=== PATIENT | male | born 1985 | race Caucasian/White ===

== ENCOUNTER 2018-02-09 15:54 | Inpatient (IN) | payer OTHER ==
[2018-02-09 17:35] VITALS: BMI 33.2
[2018-02-09] MEDS ORDERED: MELATONIN 5 MG TABLETS PO PRN (22:00)
--- NOTE | 2018-02-09 23:33 | HP ---
CIWA Score - CIWA Score Nausea/Vomitin-Mild Nausea/No Vomiting Muscle Tremors: 4-Moderate,w/Arms Extend Anxiety: 4-Mod. Anxious/Guarded Agitation: 4-Moderately Restless Paroxysmal Sweats: 1-Minimal Palms Moist Orientation: 1-Uncertain about Date Tacttile Disturbances: 1-Very Mild Itch/Numbness Auditory Disturbances: 0-None Visual Disturbances: 0-None Headache: 3-Moderate (Head and eyes pounding r/t withdrawal) CIWA-Ar Total Score: [address] [facility] Chief Complaint: Here or Xanax and alcohol withdrawal. Allergies/Adverse Reactions: Allergies Allergy/AdvReac Type Severity Reaction Status Date / Time Fish Containing Products Allergy Hives Verified 02/09/18 20:58 Sulfa (Sulfonamide Allergy Hives Verified 02/09/18 20:58 Antibiotics) sulfamethoxazole Allergy Hives Verified 02/09/18 20:58 [From Bactrim] trimethoprim [From Bactrim] Allergy Hives Verified 02/09/18 20:58 History of Present Illness: Started taking Xanax at age 17. Takes 2 - 5 mg's per day. Last used on 02/08 HS. Alcohol use started at age 11. Drinks 6-12 40 oz beers daily. Last drink this am. Last detox 2 years ago. Relapsed one month ago. Currently on MMTP at [facility]. Methadone dose is 70 mg PO Daily. Needs verification in am by RN. Uses cocaine 1-2x/month. Marijuana use approx $20/day every other day. States takes THC for pain and appetite. Hx. multiple Sclerosis and fibromyalgia. No prescribed meds on [employer]. - Ebola screening Have you traveled outside of the country in the last 21 days: No (N) Have you had contact with anyone from an Ebola affected area: No Have you been sick,other than usual withdrawal symptoms: No Do you have a fever: No - Review of Systems Constitutional: Chills, Diaphoresis, Changes in sleep (Sleep difficulty since age 15.) EENT: reports: Other (States seeing spots of light for last 2 day r/t withdrawal ) Respiratory: reports: No Symptoms reported Cardiac: reports: No Symptoms Reported GI: reports: Nausea : reports: No Symptoms Reported Musculoskeletal: reports: Back Pain, Joint Pain, Muscle Pain, Other (States has fibromyalgia and Multiple Sclerosis since age 15. Pain is chronic and diffuse. pain is achy and throbbing. Pain now is a "8". Pain is usually relieves w/ neurontin.) Integumentary: reports: Lesions (Blister (R) heel from shoes rubbing when walks. ) Neuro: reports: Headache Endocrine: reports: No Symptoms Reported Hematology: reports: No Symptoms Reported Psychiatric: reports: Orientated x3, Anxious, Depressed (Hx depression since age 11. has hx. PTSD. Denies suicide or violent ideation.) Patient History - Patient Medical History Hx Anemia: No Hx Asthma: No Hx Chronic Obstructive Pulmonary Disease (COPD): No Hx Cancer: No Hx Cardiac Disorders: No Hx Congestive Heart Failure: No Hx Hypertension: No Hx Hypercholesterolemia: No Hx Pacemaker: No HX Cerebrovascular Accident: No Hx Seizures: Yes (xanax related last 3 days ago) Hx Dementia: No Hx Diabetes: No Hx Gastrointestinal Disorders: No Hx Liver Disease: No Hx Genitourinary Disorders: No Hx Sexually Transmitted Disorders: No Hx Renal Disease (ESRD): No Hx Thyroid Disease: No Hx Human Immunodeficiency Virus (HIV): No Hx Hepatitis C: No Hx Depression: Yes (Denies suicide/violent ideation.) Hx Suicide Attempt: No Hx Bipolar Disorder: Yes Hx Schizophrenia: No - Patient Surgical History Past Surgical History: No Hx Neurologic Surgery: No Hx Cataract Extraction: No Hx Cardiac Surgery: No Hx Lung Surgery: No Hx Breast Surgery: No Hx Breast Biopsy: No Hx Abdominal Surgery: No Hx Appendectomy: No Hx Cholecystectomy: No Hx Genitourinary Surgery: No Hx Section: No Hx Orthopedic Surgery: No Anesthesia Reaction: No - PPD History Previous Implant?: Yes Documented Results: Negative w/proof Date: 05/17/16 PPD to be Administered?: Yes - Smoking Cessation Smoking history: Current every day smoker Have you smoked in the past 12 months: Yes Aproximately how many cigarettes per day: 20 Hx Chewing Tobacco Use: No Initiated information on smoking cessation: Yes 'Breaking Loose' booklet given: 02/09/18 - Substance & Tx. History Hx Alcohol Use: Yes Hx Substance Use: Yes Substance Use Type: Alcohol, Cocaine, Marijuana, Tranquilizers Hx Substance Use Treatment: Yes (on MMTP. Last detox 2 yrs ago. ) - Substances Abused Alprazolam (Xanax) Route: Oral Frequency: Daily Amount used: 10mg Age of first use: 17 Date of Last Use: 02/09/18 Alcohol Route: Oral Frequency: Daily Amount used: 6 - 12 40 oz beers Age of first use: 11 Date of Last Use: 02/08/18 Cocaine Route: Smoking Frequency: 1-3 times last 30 days Amount used: $20 Age of first use: 12 Date of Last Use: 02/07/18 Marijuana/Hashish Route: Smoking Frequency: 3-6 times per week Amount used: $20 Age of first use: 11 Date of Last Use: 02/08/18 Admission Physical Exam [facility] - Vital Signs Vital Signs: Vital Signs - 24 hr 02/09/18 17:32 Temperature 97.9 F Pulse Rate 106 H Respiratory 22 Rate Blood Pressure 141/103 - Physical General Appearance: Yes: Mild Distress, Tremorous, Anxious HEENTM: Yes: EOMI, Hearing grossly Normal, [place] Respiratory: Yes: Lungs Clear, Normal Breath Sounds Neck: Yes: No masses,lesions,Nodules Breast: Yes: Breast Exam Deferred Cardiology: Yes: Regular Rhythm, Regular Rate, S1, S2 Abdominal: Yes: Normal Bowel Sounds, Non Tender, Soft Genitourinary: Yes: Within Normal Limits Musculoskeletal: Yes: full range of Motion, Gait Steady Extremities: Yes: Normal Capillary Refill, Tremors (On arm extension) Neurological: Yes: Fully Oriented, Motor Strength 5/5 Integumentary: Yes: Track Robertson (Old track robertson on arms), Other (Superficial abrasion (R) heel. No exudate.) - Diagnostic (1) Alcohol withdrawal Current Visit: Yes Status: Acute Qualifiers: Complication of substance-induced condition: uncomplicated Qualified Code(s ): F10.230 - Alcohol dependence with withdrawal, uncomplicated (2) Cocaine use disorder Current Visit: Yes Status: Acute (3) Depression Current Visit: Yes Status: Chronic Qualifiers: Major depression episode severity: unspecified (4) Skin lesion Current Visit: Yes Status: Acute (5) Nicotine dependence Current Visit: No Status: Chronic Qualifiers: Nicotine product type: cigarettes Substance use status: uncomplicated Qualified Code(s): F17.210 - Nicotine dependence, cigarettes, uncomplicated (6) Opioid dependence on agonist therapy Current Visit: No Status: Chronic (7) Sedative, hypnotic or anxiolytic dependence with withdrawal, uncomplicated Current Visit: Yes Status: Acute (8) Cannabis abuse Current Visit: Yes Status: Chronic Cleared for Admission [facility] - Detox or Rehab Detox Regimen/Protocol: Valium [facility] Breath Alcohol Content Breath Alcohol Content: 0 Urine Drug Screen - Results Drug Screen Negative: No Urine Drug Screen Results: THC-Marijuana, JALYN-Cocaine, BZO-Benzodiazepines, MTD- Methadone, TCA-Tricyclic Antidepress
[2018-02-09] MEDS ORDERED: MAG HYDROX/AL HYDROX/SIMETH 30 ML UNIT-DOSE CUP PO PRN (23:54)
[2018-02-09] MEDS ORDERED: LOPERAMIDE HCL 2 MG CAPSULE PO PRN (23:54)
[2018-02-09] MEDS ORDERED: ACETAMINOPHEN 325 MG TABLET (FP) PO PRN (23:54)
[2018-02-09] MEDS ORDERED: MAGNESIUM HYDROX 2400MG/30ML ORAL SUSPENSION 30 ML CUP PO PRN (23:54)
[2018-02-09] MEDS ORDERED: IBUPROFEN 400 MG TABLET (FP) PO PRN (23:54)
[2018-02-09] MEDS ORDERED: MAGNESIUM CITRATE 300 ML BOTTLE PO PRN (23:54)
[2018-02-09] MEDS ORDERED: MENTHOL/PHENOL 1 EACH UD MM PRN (23:54)
[2018-02-09] MEDS ORDERED: guaiFENesin/D-METHORPHAN HB 10 ML UNIT-DOSE CUPS PO PRN (23:54)
[2018-02-09] MEDS ORDERED: P-EPHED 60MG/TRIPROLIDI 2.5MG TABLET PO PRN (23:54)
[2018-02-10] MEDS ORDERED: diazePAM 5 MG TABLET PO ONE (00:15)
[2018-02-10] MEDS ORDERED: GABAPENTIN 400 MG CAPSULE (FP) PO ONE (01:00)
[2018-02-10] MEDS ORDERED: ONDANSETRON *ODT* 4 MG TABLET SL ONE ×2 (02:41→05:45)
[2018-02-10] MEDS: CYCLOBENZAPRINE HCL 10 MG TABLET (FP) PO SCH ×3 (05:41→22:42)
[2018-02-10] MEDS: diazePAM 5 MG TABLET PO SCH ×3 (05:41→22:42)
[2018-02-10] MEDS: NICOTINE POLACRILEX 2 MG GUM BC PRN ×2 (06:03→13:09)
[2018-02-10] MEDS: diazePAM 5 MG TABLET PO PRN ×2 (08:28→17:03)
[2018-02-10] MEDS: hydrOXYzine PAMOATE 50 MG CAPSULE (FP) PO PRN (08:28)
--- NOTE | 2018-02-10 09:22 | EKG ---
Test Reason : Blood Pressure : / mmHG Vent. Rate : 088 BPM Atrial Rate : 088 BPM P-R Int : 160 ms QRS Dur : 104 ms QT Int : 378 ms P-R-T Axes : 081 085 079 degrees QTc Int : 457 ms NORMAL SINUS RHYTHM NORMAL ECG NO PREVIOUS ECGS AVAILABLE Confirmed by DORETHA LIZ, BELINDA ([id number]) on 02/10/2018 9:21:54 AM Referred By: Confirmed By:BELINDA COYNE MD
[2018-02-10] MEDS ORDERED: METHADONE HCL 10 MG TABLET PO SCH (10:00)
[2018-02-10 10:10] LABS: URINE APPEARANCE CLEAR; URINE BILIRUBIN NEGATIVE (<2.0 mg/dL); URINE COLOR LTYELLOW; URINE GLUCOSE (UA) NEGATIVE (NEGATIVE); URINE KETONE NEGATIVE (NEGATIVE); URINE LEUK ESTERASE NEGATIVE (NEGATIVE); URINE NITRITE NEGATIVE (NEGATIVE); URINE PROTEIN NEGATIVE (NEGATIVE); URINE UROBILINOGEN NEGATIVE mg/dL (0.2-1.0)
[2018-02-10 10:14] LABS: HEMATOCRIT 41.1 % (35.4-49); HEMOGLOBIN 13.6 GM/dL (11.7-16.9); MCH 28.3 pg (25.7-33.7); MCHC 33.1 g/dl (32.0-35.9); MEAN CELL VOLUME 85.5 fl (80-96); MEAN PLT VOLUME 8.2 fl (7.5-11.1); PLATELET COUNT 246 K/MM3 (134-434); RBC 4.81 M/mm3 (4.00-5.60); WHITE BLOOD COUNT 6.3 K/mm3 (4.0-10.0)
[2018-02-10 10:32] LABS: ALBUMIN 3.1 g/dl (3.4-5.0); ANION GAP 8 (8-16); BLOOD UREA NITROGEN 13 mg/dL (7-18); CALCIUM 7.6 mg/dL (8.5-10.1); CHLORIDE 108 mmol/L (98-107); CO2 26 mmol/L (21-32); POTASSIUM 4.1 mmol/L (3.5-5.1); SODIUM 142 mmol/L (136-145)
[2018-02-10 10:37] LABS: ALK PHOS 76 U/L (45-117); BILIRUBIN,TOTAL 0.4 mg/dL (0.2-1.0); CREATININE 0.8 mg/dL (0.7-1.3); GLUCOSE,RANDOM 87 mg/dL (74-106); SGOT/AST 15 U/L (15-37); SGPT/ALT 16 U/L (12-78); TOT PROT 5.9 g/dl (6.4-8.2)
[2018-02-10] MEDS: NICOTINE 21 MG/24 HOURS TOPICAL PATCH TD SCH (10:40)
[2018-02-10] MEDS: PRENATAL VITAMINS W/ FOLIC ACID TABLET (FP) PO SCH (10:40)
[2018-02-10] MEDS: BACITRACIN 0.9 GM PACKET TP SCH ×2 (10:40→22:42)
[2018-02-10] MEDS: GABAPENTIN 300 MG CAPSULE (FP) PO SCH ×2 (13:05→22:43)
--- NOTE | 2018-02-10 14:14 | CONSULT ---
[facility] Psychiatric Consult - Data Date of interview: 02/10/18 Admission source: [facility] Identifying data: Readmission to [facility] for this 32 y/o male seeking detox treatment on for alcohol,xanax,cocaine,cannabis and heroin dependence.Patient is single,a father of one,homeless,unemployed and supported by relatives. Substance Abuse History: Confirmed by the patient in my interview.Details in current [facility] report : Smoking history: Current every day smoker. Have you smoked in the past 12 months: Yes. Aproximately how many cigarettes per day: 20. Hx Chewing Tobacco Use: No. Initiated information on smoking cessation: Yes. 'Breaking Loose' booklet given: 02/09/18. - Substance & Tx. History. Hx Alcohol Use: Yes. Hx Substance Use: Yes. Substance Use Type: Alcohol, Cocaine , Marijuana, Tranquilizers. Hx Substance Use Treatment: Yes (on MMTP. Last detox 2 yrs ago. ). - Substances Abused. Alprazolam (Xanax). Route: Oral. Frequency: Daily. Amount used: 10mg. Age of first use: 17. Date of Last Use : 02/09/18. Alcohol. Route: Oral. Frequency: Daily. Amount used: 6 - 12 40 oz beers. Age of first use: 11. Date of Last Use: 02/08/18. Cocaine. Route: Smoking. Frequency: 1-3 times last 30 days. Amount used: $20. Age of first use: 12. Date of Last Use: 02/07/18. Marijuana/Hashish. Route: Smoking. Frequency: 3-6 times per week. Amount used: $20. Age of first use: 11. Date of Last Use: 02/08/18 Medical History: Obesity,history of withdrawal-related seizures,fibromyalgia and multiple sclerosis. Psychiatric History: Patient admits to a history of two psychiatric hospitalizations ([facility]).Diagnosed with MDD and Anxiety Disorder.Mr Mohamud declares that he uses the CPEP setting at [facility] as his resource for medications refills.Denies regular format of psychiatric OPD care.Prescribed seroquel 400 mg/hs + wellbutrin SR 200 bid and trazodone 150 mg/hs (confirmed by limited refills -1 or 2 week supply - for these medications claimed on 01/29/18 at the [facility]).Patient indicates that he is also known to the [facility] OPD clinic (no show for months).Self-reported history of a suicide attempt via wrist-cutting 4- 5 years ago.Patient is currently on methadone maintenance (70 mg/day) at the [facility] MMTP program in [facility]. Physical/Sexual Abuse/Trauma History: Patient denies. Additional Comment: Urine Drug Screen Results: THC-Marijuana, JALYN-Cocaine, BZO- Benzodiazepines, MTD-Methadone, TCA-Tricyclic Antidepressant.Noted. Mental Status Exam - Mental Status Exam Alert and Oriented to: Time, Place, Person Cognitive Function: Grossly Intact (sleepy at intervals) Patient Appearance: Unkempt, Disheveled (tall stature,obese ; chest covered with fake jewelry,tattoo on left side of neck/forearms,earrings in both earlobes ,pierced bridge of nose and left eyebrow) Mood: Nervous, Anxious, Apprehensive, Irritable Affect: Mood Congruent, Labile Patient Behavior: Restless, Fatigued (medication-seeking), Talkative Speech Pattern: Clear, Excessive, Perseverating Voice Loudness: Normal Thought Process: Circumstantial Thought Disorder: Not Present Hallucinations: Denies Suicidal Ideation: Denies Homicidal Ideation: Denies Insight/Judgement: Poor Sleep: Poorly, Difficulty falling asleep Appetite: Good Muscle strength/Tone: Normal Gait/Station: Normal Psychiatric Findings - Problem List ([place] 1, 2,3) (1) Opioid dependence on agonist therapy Current Visit: Yes Status: Acute (2) Alcohol withdrawal Current Visit: Yes Status: Acute Qualifiers: Complication of substance-induced condition: uncomplicated Qualified Code(s ): F10.230 - Alcohol dependence with withdrawal, uncomplicated (3) Sedative, hypnotic or anxiolytic dependence with withdrawal, uncomplicated Current Visit: Yes Status: Acute (4) Cocaine dependence Current Visit: Yes Status: Acute (5) Marihuana dependence Current Visit: Yes Status: Acute (6) Nicotine dependence Current Visit: Yes Status: Acute Qualifiers: Nicotine product type: cigarettes Substance use status: uncomplicated Qualified Code(s): F17.210 - Nicotine dependence, cigarettes, uncomplicated (7) Drug-induced mood disorder Current Visit: Yes Status: Acute (8) Bipolar disorder Current Visit: Yes Status: Suspected (9) Insomnia Current Visit: Yes Status: Acute - Initial Treatment Plan Initial Treatment Plan: Psychoeducation.Sleep hygiene.Detoxification in progress.Medications : bupropion 100 mg po bid (at 7 am + 4 pm) + seroquel 200 mg po hs (dose reduced as a caution for oversedation).Trazodone is withdrawn.Side effects /benefits of each medication discussed with the patient.There is ample clinical justification for resuming medications at much lesser doses because, in the psychiatric interview, Mr Mohamud was observed falling asleep at intervals.Titration will follow as clinically indicated (next 24-48 hours).Mr Mohamud agrees with this careplan.Psychiatric re-consultation is advised.Will follow.Observation.Falls precautions.
--- NOTE | 2018-02-10 14:22 | PN ---
S CIWA - CIWA Score Nausea/Vomitin Muscle Tremors: 3 Anxiety: 3 Agitation: 3 Paroxysmal Sweats: 1-Minimal Palms Moist Orientation: 0-Oriented Tacttile Disturbances: 1-Very Mild Itch/Numbness Auditory Disturbances: 1-Very Mild Visual Disturbances: 0-None Headache: 2-Mild CIWA-Ar Total Score: 17 [facility] Progress Note (SOAP) Subjective: ALERT,IRRITABLE,ANXIOUS,INTERRUPTED SLEEP,PAIN IN THE BODY AND BACK, NEUROPATHY,BACK PAIN Objective: 02/10/18 14:20 Vital Signs Temperature 97.9 F 02/10/18 09:35 Pulse Rate 80 02/10/18 09:35 Respiratory Rate 18 02/10/18 09:35 Blood Pressure 130/103 02/10/18 09:35 O2 Sat by Pulse Oximetry (%) EKG NSR,NORMAL ECG PROLONG QT 378/457 Laboratory Last Values WBC 6.3 K/mm3 (4.0-10.0) D 02/10/18 08:00 RBC 4.81 M/mm3 (4.00-5.60) 02/10/18 08:00 Hgb 13.6 GM/dL (11.7-16.9) D 02/10/18 08:00 Hct 41.1 % (35.4-49) 02/10/18 08:00 MCV 85.5 fl (80-96) 02/10/18 08:00 MCH 28.3 pg (25.7-33.7) 02/10/18 08:00 MCHC 33.1 g/dl (32.0-35.9) 02/10/18 08:00 RDW 16.0 % (11.9-15.9) H 02/10/18 08:00 Plt Count 246 K/MM3 (134-434) 02/10/18 08:00 MPV 8.2 fl (7.5-11.1) 02/10/18 08:00 Sodium 142 mmol/L (136-145) 02/10/18 08:00 Potassium 4.1 mmol/L (3.5-5.1) 02/10/18 08:00 Chloride 108 mmol/L (98-107) H 02/10/18 08:00 Carbon Dioxide 26 mmol/L (21-32) 02/10/18 08:00 Anion Gap 8 (8-16) 02/10/18 08:00 BUN 13 mg/dL (7-18) 02/10/18 08:00 Creatinine 0.8 mg/dL (0.7-1.3) 02/10/18 08:00 Creat Clearance w eGFR > 60 (>60) 02/10/18 08:00 Random Glucose 87 mg/dL (74-106) D 02/10/18 08:00 Calcium 7.6 mg/dL (8.5-10.1) L 02/10/18 08:00 Total Bilirubin 0.4 mg/dL (0.2-1.0) D 02/10/18 08:00 AST 15 U/L (15-37) 02/10/18 08:00 ALT 16 U/L (12-78) D 02/10/18 08:00 Alkaline Phosphatase 76 U/L (45-117) D 02/10/18 08:00 Total Protein 5.9 g/dl (6.4-8.2) L 02/10/18 08:00 Albumin 3.1 g/dl (3.4-5.0) L 02/10/18 08:00 Urine Color Ltyellow 02/10/18 08:00 Urine Appearance Clear 02/10/18 08:00 Urine pH 7.0 (5.0-8.0) 02/10/18 08:00 Ur Specific [place] 1.025 (1.001-1.035) 02/10/18 08:00 Urine Protein Negative (NEGATIVE) 02/10/18 08:00 Urine Glucose (UA) Negative (NEGATIVE) 02/10/18 08:00 Urine Ketones Negative (NEGATIVE) 02/10/18 08:00 Urine Blood Negative (NEGATIVE) 02/10/18 08:00 Urine Nitrite Negative (NEGATIVE) 02/10/18 08:00 Urine Bilirubin Negative (<2.0 mg/dL) 02/10/18 08:00 Urine Urobilinogen Negative mg/dL (0.2-1.0) 02/10/18 08:00 Ur Leukocyte Esterase Negative (NEGATIVE) 02/10/18 08:00 RPR Titer Nonreactive (NONREACTIVE) 02/10/18 08:00 Assessment: 02/10/18 14:21 WITHDRAWAL SYMPTOM Plan: CONTINUE DETOX
[2018-02-10] MEDS: buPROPion HCL 100 MG TABLET PO SCH (15:30)
[2018-02-10] MEDS ORDERED: cloNIDine HCL 0.1 MG TABLET PO ONE (22:30)
--- NOTE | 2018-02-10 22:33 | PN ---
S Progress Note (SOAP) Subjective: Nurse, Ms. Sharee Varghese reports that patient's blood pressure is B/P 157/103, HR 61. Patient is asymptomatic. Objective: 02/10/18 22:32 Vital Signs Temperature 98.2 F 02/10/18 22:24 Pulse Rate 61 02/10/18 22:24 Respiratory Rate 18 02/10/18 22:24 Blood Pressure 157/103 02/10/18 22:24 O2 Sat by Pulse Oximetry (%) Laboratory Last Values WBC 6.3 K/mm3 (4.0-10.0) D 02/10/18 08:00 RBC 4.81 M/mm3 (4.00-5.60) 02/10/18 08:00 Hgb 13.6 GM/dL (11.7-16.9) D 02/10/18 08:00 Hct 41.1 % (35.4-49) 02/10/18 08:00 MCV 85.5 fl (80-96) 02/10/18 08:00 MCH 28.3 pg (25.7-33.7) 02/10/18 08:00 MCHC 33.1 g/dl (32.0-35.9) 02/10/18 08:00 RDW 16.0 % (11.9-15.9) H 02/10/18 08:00 Plt Count 246 K/MM3 (134-434) 02/10/18 08:00 MPV 8.2 fl (7.5-11.1) 02/10/18 08:00 Sodium 142 mmol/L (136-145) 02/10/18 08:00 Potassium 4.1 mmol/L (3.5-5.1) 02/10/18 08:00 Chloride 108 mmol/L (98-107) H 02/10/18 08:00 Carbon Dioxide 26 mmol/L (21-32) 02/10/18 08:00 Anion Gap 8 (8-16) 02/10/18 08:00 BUN 13 mg/dL (7-18) 02/10/18 08:00 Creatinine 0.8 mg/dL (0.7-1.3) 02/10/18 08:00 Creat Clearance w eGFR > 60 (>60) 02/10/18 08:00 Random Glucose 87 mg/dL (74-106) D 02/10/18 08:00 Calcium 7.6 mg/dL (8.5-10.1) L 02/10/18 08:00 Total Bilirubin 0.4 mg/dL (0.2-1.0) D 02/10/18 08:00 AST 15 U/L (15-37) 02/10/18 08:00 ALT 16 U/L (12-78) D 02/10/18 08:00 Alkaline Phosphatase 76 U/L (45-117) D 02/10/18 08:00 Total Protein 5.9 g/dl (6.4-8.2) L 02/10/18 08:00 Albumin 3.1 g/dl (3.4-5.0) L 02/10/18 08:00 Urine Color Ltyellow 02/10/18 08:00 Urine Appearance Clear 02/10/18 08:00 Urine pH 7.0 (5.0-8.0) 02/10/18 08:00 Ur Specific [place] 1.025 (1.001-1.035) 02/10/18 08:00 Urine Protein Negative (NEGATIVE) 02/10/18 08:00 Urine Glucose (UA) Negative (NEGATIVE) 02/10/18 08:00 Urine Ketones Negative (NEGATIVE) 02/10/18 08:00 Urine Blood Negative (NEGATIVE) 02/10/18 08:00 Urine Nitrite Negative (NEGATIVE) 02/10/18 08:00 Urine Bilirubin Negative (<2.0 mg/dL) 02/10/18 08:00 Urine Urobilinogen Negative mg/dL (0.2-1.0) 02/10/18 08:00 Ur Leukocyte Esterase Negative (NEGATIVE) 02/10/18 08:00 RPR Titer Nonreactive (NONREACTIVE) 02/10/18 08:00 Assessment: 02/10/18 22:32 Withdrawal symptoms Plan: Clonidine 0.1mg tablet oral
[2018-02-10] MEDS: THIAMINE HCL 100 MG TABLET (FP) PO SCH (22:42)
[2018-02-10] MEDS: QUEtiapine FUMARATE 200 MG TABLET PO SCH (22:43)
[2018-02-11] MEDS: diazePAM 5 MG TABLET PO PRN ×4 (03:52→21:05)
[2018-02-11] MEDS ORDERED: METHADONE HCL 10 MG TABLET ONE (04:51)
[2018-02-11] MEDS ORDERED: METHADONE HCL 40 MG DISPERSABLE TABLET ONE (04:51)
[2018-02-11] MEDS: METHADONE 40 MG, METHADONE 30 MG PO SCH (06:11)
[2018-02-11] MEDS: CYCLOBENZAPRINE HCL 10 MG TABLET (FP) PO SCH ×3 (06:12→22:06)
[2018-02-11] MEDS: GABAPENTIN 300 MG CAPSULE (FP) PO SCH ×3 (06:12→22:50)
[2018-02-11] MEDS: buPROPion HCL 100 MG TABLET PO SCH ×3 (06:12→16:55)
[2018-02-11] MEDS: diazePAM 5 MG TABLET PO SCH ×3 (06:12→22:06)
[2018-02-11] MEDS: IBUPROFEN 400 MG TABLET (FP) PO PRN ×2 (06:16→19:44)
[2018-02-11] MEDS: NICOTINE POLACRILEX 2 MG GUM BC PRN ×4 (06:19→22:09)
[2018-02-11] MEDS: NICOTINE 21 MG/24 HOURS TOPICAL PATCH TD SCH (10:15)
[2018-02-11] MEDS: PRENATAL VITAMINS W/ FOLIC ACID TABLET (FP) PO SCH (10:15)
[2018-02-11] MEDS: BACITRACIN 0.9 GM PACKET TP SCH ×2 (10:17→22:06)
--- NOTE | 2018-02-11 15:08 | PN ---
[facility] CIWA - CIWA Score Nausea/Vomitin-Int. Nausea w/Dry Heave Muscle Tremors: 4-Moderate,w/Arms Extend Anxiety: 4-Mod. Anxious/Guarded Agitation: 4-Moderately Restless Paroxysmal Sweats: 3 Orientation: 0-Oriented Tacttile Disturbances: 0-None Auditory Disturbances: 0-None Visual Disturbances: 0-None Headache: 1-Very Mild CIWA-Ar Total Score: 20 [facility] Progress Note (SOAP) Subjective: Headache, chills, agitated, angry, nausea, diarrhea; patient appears drowsy but when approached becomes agitated as he denies being drowsy Objective: 02/11/18 15:06 Last Vital Signs Temp Pulse Resp BP Pulse Ox 95.9 F L 76 18 115/78 02/11/18 14:02 02/11/18 14:02 02/11/18 14:02 02/11/18 14:02 Laboratory Tests 02/10/18 02/10/18 02/10/18 08:00 08:00 08:00 WBC 6.3 D RBC 4.81 Hgb 13.6 D Hct 41.1 MCV 85.5 MCH 28.3 MCHC 33.1 RDW 16.0 H Plt Count 246 MPV 8.2 Sodium 142 Potassium 4.1 Chloride 108 H Carbon Dioxide 26 Anion Gap 8 BUN 13 Creatinine 0.8 Creat Clearance w eGFR > 60 Random Glucose 87 D Calcium 7.6 L Total Bilirubin 0.4 D AST 15 ALT 16 D Alkaline Phosphatase 76 D Total Protein 5.9 L Albumin 3.1 L Urine Color Urine Appearance Urine pH Ur Specific [place] Urine Protein Urine Glucose (UA) Urine Ketones Urine Blood Urine Nitrite Urine Bilirubin Urine Urobilinogen Ur Leukocyte Esterase RPR Titer Nonreactive 02/10/18 08:00 WBC RBC Hgb Hct MCV MCH MCHC RDW Plt Count MPV Sodium Potassium Chloride Carbon Dioxide Anion Gap BUN Creatinine Creat Clearance w eGFR Random Glucose Calcium Total Bilirubin AST ALT Alkaline Phosphatase Total Protein Albumin Urine Color Ltyellow Urine Appearance Clear Urine pH 7.0 Ur Specific [place] 1.025 Urine Protein Negative Urine Glucose (UA) Negative Urine Ketones Negative Urine Blood Negative Urine Nitrite Negative Urine Bilirubin Negative Urine Urobilinogen Negative Ur Leukocyte Esterase Negative RPR Titer Labs reviewed Assessment: 02/11/18 15:07 Withdrawal symptoms Plan: Continue detox Encouraged PO hydration (water) and rest
--- NOTE | 2018-02-11 16:10 | PN ---
S Progress Note Note: Psychiatrist sewing demonstrator note: Told by nursing staff that patient wants Wellbutrin to be readjusted. Chart reviewed and Dr Segovia note read and appreciated. Patient was on Wellbutrin 200 mg po BID before admission. Dr Segovia ordered medication at reduced dosage to prevent over sedation. Reportedly patient is well awake and far of being sedated. Therefore Wellbutrin dosage is increased to 200 mg po BID
[2018-02-11] MEDS: QUEtiapine FUMARATE 200 MG TABLET PO SCH (22:06)
[2018-02-11] MEDS: THIAMINE HCL 100 MG TABLET (FP) PO SCH (22:06)
[2018-02-12] MEDS ORDERED: METHADONE HCL 40 MG DISPERSABLE TABLET ONE (04:27)
[2018-02-12] MEDS ORDERED: METHADONE HCL 10 MG TABLET ONE (04:28)
[2018-02-12] MEDS: CYCLOBENZAPRINE HCL 10 MG TABLET (FP) PO SCH ×3 (08:04→21:53)
[2018-02-12] MEDS: GABAPENTIN 300 MG CAPSULE (FP) PO SCH ×2 (08:04→14:49)
[2018-02-12] MEDS: METHADONE 40 MG, METHADONE 30 MG PO SCH (08:04)
[2018-02-12] MEDS: diazePAM 5 MG TABLET PO PRN ×2 (08:10→14:50)
[2018-02-12] MEDS: PRENATAL VITAMINS W/ FOLIC ACID TABLET (FP) PO SCH (10:59)
[2018-02-12] MEDS: BACITRACIN 0.9 GM PACKET TP SCH ×2 (10:59→21:53)
[2018-02-12] MEDS: diazePAM 5 MG TABLET PO SCH ×2 (11:00→21:53)
[2018-02-12] MEDS: NICOTINE 21 MG/24 HOURS TOPICAL PATCH TD SCH (11:01)
[2018-02-12] MEDS: buPROPion HCL 100 MG TABLET PO SCH ×2 (11:01→15:26)
[2018-02-12] MEDS: NICOTINE POLACRILEX 2 MG GUM BC PRN ×3 (11:03→21:56)
[2018-02-12] MEDS: IBUPROFEN 400 MG TABLET (FP) PO PRN ×2 (11:39→21:55)
--- NOTE | 2018-02-12 12:31 | PN ---
S Progress Note (SOAP) Subjective: ALERT,IRRITABLE,ANXIOUS,INTERRUPTED SLEEP, Objective: 02/12/18 12:29 Vital Signs Temperature 96.0 F L 02/12/18 10:00 Pulse Rate 88 02/12/18 10:00 Respiratory Rate 18 02/12/18 10:00 Blood Pressure 117/93 02/12/18 10:00 O2 Sat by Pulse Oximetry (%) Assessment: 02/12/18 12:30 WITHDRAWAL SYMPTOM Plan: CONTINUE DETOX,DISCHARGE IN AM
--- NOTE | 2018-02-12 12:38 | PN ---
[facility] Progress Note Note: PATIENT STILL ON MEDICATION UNTIL 02/14/18 ,DISCHARGE ON 02/14/18 INSTES OF
--- NOTE | 2018-02-12 16:05 | PN ---
Psychiatric Progress Note Vital Signs: Vital Signs Period Temp Pulse Resp BP Sys/Guevara Pulse Ox Last 24 Hr 96.0 F-98.8 F 70-88 16-21 117-155/58-102 Date of Session: 02/12/18 Chief Complaint:: Medication time schedule HPI: Patoent reports taking his Wellbutiri 200mg po bid at 6am and 2pm prior to admission Current Medications: Active Medications Generic Name Dose Route Start Last Admin Trade Name Freq PRN Reason Stop Dose Admin Acetaminophen 650 mg 02/09/18 23:54 02/10/18 13:06 Tylenol - PO 650 mg Q4H PRN Administration FEVER Al Hydroxide/Mg Hydroxide 30 ml 02/09/18 23:54 02/11/18 16:58 Mylanta Oral Suspension - PO 30 ml Q6H PRN Administration DYSPEPSIA Bacitracin 0.9 gm 02/10/18 10:00 02/12/18 10:59 Bacitracin - TP 0.9 gm BID ZAY Administration Bupropion HCl 200 mg 02/12/18 15:30 02/12/18 15:26 Wellbutrin - PO 200 mg BID@0600,1400 ZAY Administration Cyclobenzaprine HCl 10 mg 02/10/18 06:00 02/12/18 14:03 Flexeril - PO 10 mg TID ZAY Administration Diazepam 5 mg 02/12/18 10:00 02/12/18 11:00 Valium - PO 02/13/18 22:01 5 mg BID ZAY Administration Diazepam 5 mg 02/14/18 10:00 Valium - PO 02/14/18 10:01 DAILY ZAY Diazepam 10 mg 02/10/18 00:15 02/12/18 14:50 Valium - PO 02/13/18 00:14 10 mg Q4H PRN Administration WITHDRAWAL(CONT SUBST) Eucalyptus/Menthol/Phenol/Sorbitol 1 each 02/09/18 23:54 Cepastat Lozenge - MM Q4H PRN SORE THROAT Gabapentin 1,200 mg 02/12/18 14:06 Neurontin - PO TID ZAY Guaifenesin 10 ml 02/09/18 23:54 Robitussin Dm - PO Q6H PRN COUGH Hydroxyzine Pamoate 50 mg 02/09/18 23:54 02/10/18 08:28 Vistaril - PO 50 mg Q4H PRN Administration AGITATION Ibuprofen 800 mg 02/10/18 12:58 02/12/18 11:39 Motrin - PO 800 mg Q8H PRN Administration PAIN LEVEL 4 - 6 Loperamide HCl 4 mg 02/09/18 23:54 Imodium - PO Q6H PRN DIARRHEA Magnesium Citrate 300 ml 02/09/18 23:54 Citroma - PO Q48H PRN CONSTIPATION Magnesium Hydroxide 30 ml 02/09/18 23:54 02/12/18 11:39 Milk Of Magnesia - PO 30 ml DAILY PRN Administration CONSTIPATION Melatonin 5 mg 02/09/18 22:00 Melatonin PO HS PRN INSOMNIA Methadone HCl 40 mg/ Methadone 70 mg 02/11/18 06:00 02/12/18 08:04 HCl 30 mg PO 70 mg DAILY@0600 ZAY Administration Nicotine 21 mg 02/10/18 10:00 02/12/18 11:01 Nicoderm Patch - TD 21 mg DAILY ZAY Administration Nicotine Polacrilex 2 mg 02/09/18 23:54 02/12/18 15:27 Nicorette Gum - BC 2 mg Q2H PRN Administration NICOTINE REPLACEMENT RX Multivit/Folic Acid/Iron 1 tab 02/10/18 10:00 02/12/18 10:59 Vitamins (Sjr) - PO 1 tab DAILY ZAY Administration Pseudoephedrine/Triprolidine 1 combo 02/09/18 23:54 Actifed - PO TID PRN NASAL CONGESTION Quetiapine Fumarate 200 mg 02/10/18 22:00 02/11/18 22:06 Seroquel - PO 200 mg HS ZAY Administration Thiamine HCl 100 mg 02/10/18 22:00 02/11/18 22:06 Vitamin B1 - PO 100 mg HS ZAY Administration Medication(s) Change(s): Wellbutiri 200mg po bid at 6am and 2pm Provider note:: Order for Wellbutiri 200mg po bid at 6am and 2pm done Mental Status Exam - Mental Status Exam Alert and Oriented to: Person Cognitive Function: Fair Patient Appearance: Unkempt Mood: Anxious, Irritable Affect: Labile Patient Behavior: Restless, Distractible, Wandering Speech Pattern: Appropriate Voice Loudness: Normal Thought Process: Circumstantial Thought Disorder: Being Controlled Hallucinations: Denies Suicidal Ideation: Denies Homicidal Ideation: Denies Insight/Judgement: Fair Sleep: Difficulty falling asleep Appetite: Fair Muscle strength/Tone: Mild Hypertonicity Gait/Station: Normal Additional Comments: Wellbutiri 200mg po bid at 6am and 2pm Psychiatric Treatment Plan - Problem List (1) Alcohol dependence with uncomplicated withdrawal Current Visit: Yes (2) Alcohol withdrawal Current Visit: Yes Qualifiers: Complication of substance-induced condition: uncomplicated Qualified Code(s ): F10.230 - Alcohol dependence with withdrawal, uncomplicated (3) Cocaine dependence Current Visit: Yes (4) Drug-induced mood disorder Current Visit: Yes (5) Marihuana dependence Current Visit: Yes (6) Opioid dependence on agonist therapy Current Visit: Yes (7) Bipolar disorder Current Visit: Yes (8) Cannabis abuse Current Visit: Yes (9) Cannabis dependence Current Visit: Yes (10) Cocaine use disorder Current Visit: Yes (11) Nicotine dependence Current Visit: Yes Qualifiers: Nicotine product type: cigarettes Substance use status: uncomplicated Qualified Code(s): F17.210 - Nicotine dependence, cigarettes, uncomplicated Initial treatment plan: Wellbutiri 200mg po bid at 6am and 2pm
[2018-02-12] MEDS: QUEtiapine FUMARATE 200 MG TABLET PO SCH (21:54)
[2018-02-12] MEDS: GABAPENTIN 400 MG CAPSULE (FP) PO SCH (21:54)
[2018-02-12] MEDS: THIAMINE HCL 100 MG TABLET (FP) PO SCH (21:55)
[2018-02-12] MEDS ORDERED: buPROPion HCL 100 MG TABLET PO SCH (22:00)
[2018-02-12] MEDS ORDERED: cloNIDine HCL 0.1 MG TABLET PO ONE (22:03)
--- NOTE | 2018-02-12 22:12 | PN ---
S Progress Note Note: Vital Signs Temperature 97.7 F 02/12/18 22:07 Pulse Rate 80 02/12/18 22:07 Respiratory Rate 18 02/12/18 22:07 Blood Pressure 161/94 02/12/18 22:07 O2 Sat by Pulse Oximetry (%) Patient with asymptomatic elevated BP clonidine 0.1mg stat increase fluids Continue to monitor
[2018-02-13] MEDS ORDERED: METHADONE HCL 10 MG TABLET ONE (04:16)
[2018-02-13] MEDS ORDERED: METHADONE HCL 40 MG DISPERSABLE TABLET ONE (04:16)
[2018-02-13] MEDS: METHADONE 40 MG, METHADONE 30 MG PO SCH (05:28)
[2018-02-13] MEDS: GABAPENTIN 400 MG CAPSULE (FP) PO SCH ×3 (05:28→22:15)
[2018-02-13] MEDS: buPROPion HCL 100 MG TABLET PO SCH ×2 (05:28→14:09)
[2018-02-13] MEDS: CYCLOBENZAPRINE HCL 10 MG TABLET (FP) PO SCH ×3 (05:28→22:15)
[2018-02-13] MEDS: hydrOXYzine PAMOATE 50 MG CAPSULE (FP) PO PRN (05:31)
[2018-02-13] MEDS: PRENATAL VITAMINS W/ FOLIC ACID TABLET (FP) PO SCH (10:23)
[2018-02-13] MEDS: BACITRACIN 0.9 GM PACKET TP SCH ×2 (10:23→22:15)
[2018-02-13] MEDS: NICOTINE 21 MG/24 HOURS TOPICAL PATCH TD SCH (10:24)
[2018-02-13] MEDS: diazePAM 5 MG TABLET PO SCH ×2 (10:24→22:15)
--- NOTE | 2018-02-13 10:38 | PN ---
S Progress Note (SOAP) Subjective: ALERT,IRRITABLE,INTERRUPTED SLEEP,PAIN IN THE BODY Objective: 02/13/18 10:37 Vital Signs Temperature 97.4 F L 02/13/18 08:48 Pulse Rate 76 02/13/18 08:48 Respiratory Rate 18 02/13/18 08:48 Blood Pressure 130/73 02/13/18 08:48 O2 Sat by Pulse Oximetry (%) Assessment: 02/13/18 10:37 WITHDRAWAL SYMPTOM Plan: CONTINUE DETOX,DISCHARGE IN AM
[2018-02-13] MEDS: IBUPROFEN 400 MG TABLET (FP) PO PRN ×2 (12:46→22:17)
[2018-02-13] MEDS: QUEtiapine FUMARATE 200 MG TABLET PO SCH (22:15)
[2018-02-13] MEDS: THIAMINE HCL 100 MG TABLET (FP) PO SCH (22:15)
[2018-02-14] MEDS ORDERED: METHADONE HCL 40 MG DISPERSABLE TABLET ONE (04:37)
[2018-02-14] MEDS ORDERED: METHADONE HCL 10 MG TABLET ONE (04:37)
[2018-02-14] MEDS: CYCLOBENZAPRINE HCL 10 MG TABLET (FP) PO SCH ×2 (05:47→13:13)
[2018-02-14] MEDS: GABAPENTIN 400 MG CAPSULE (FP) PO SCH ×2 (05:47→13:13)
[2018-02-14] MEDS: METHADONE 40 MG, METHADONE 30 MG PO SCH (05:47)
[2018-02-14] MEDS: buPROPion HCL 100 MG TABLET PO SCH ×2 (05:48→13:13)
--- NOTE | 2018-02-14 08:49 | PN ---
S Progress Note (SOAP) Subjective: ALERT,NO COMPLAINT Objective: 02/14/18 08:59 Vital Signs Temperature 97.0 F L 02/14/18 06:00 Pulse Rate 82 02/14/18 06:00 Respiratory Rate 20 02/14/18 06:00 Blood Pressure 131/89 02/14/18 06:00 O2 Sat by Pulse Oximetry (%) Assessment: 02/14/18 09:00 DETOX COMPLETED,NO WITHDRAWAL SYMPTOM Plan: DISCHARGE TODAY,FOLLOW UP WITH AFTER CARE PROGRAM ARRANGEMENT
--- NOTE | 2018-02-14 09:04 | DS ---
[facility] Detox Discharge Summary Admission Date: 02/09/18 Discharge Date: 02/14/18 - History Present History: Alcohol Dependence, Cannabis Dependence, Cocaine Dependence, Sedative Dependence Additional Comments: FOLLOW UP WITH AFTER CARE PROGRAM ARRANGEMENT Pertinent Past History: NEUROPATHY MULTIPLE SCLEROSIS NICOTINE DEPENDENCE BIPOLAR DISORDER - Physical Exam Results Vital Signs: Vital Signs Temperature 97.0 F L 02/14/18 06:00 Pulse Rate 82 02/14/18 06:00 Respiratory Rate 20 02/14/18 06:00 Blood Pressure 131/89 02/14/18 06:00 O2 Sat by Pulse Oximetry (%) Pertinent Admission Physical Exam Findings: WITHDRAWAL SIGNS AND SYMPTOM - Treatment Hospital Course: Detox Protocol Followed, Detoxed Safely, Responded well, Discharged Condition Good, Rehab Referral Accepted Patient has Accepted a Rehab Referral to: [facility] - Medication Discharge Medications: Ambulatory Orders Bupropion HCl [Wellbutrin -] 200 mg PO BID 05/15/16 Cyclobenzaprine HCl [Flexeril -] 10 mg PO TID 05/15/16 Quetiapine Fumarate [Seroquel] 400 tab PO HS #30 tablet 05/16/16 Gabapentin [Neurontin] 1,200 mg PO TID #60 capsule 05/19/16 - Diagnosis (1) Alcohol dependence with uncomplicated withdrawal Current Visit: Yes Status: Acute (2) Cocaine dependence Current Visit: Yes Status: Acute (3) Opioid dependence on agonist therapy Current Visit: Yes Status: Acute (4) Sedative, hypnotic or anxiolytic dependence with withdrawal, uncomplicated Current Visit: Yes Status: Acute (5) Nicotine dependence Current Visit: Yes Status: Chronic Qualifiers: Nicotine product type: cigarettes Substance use status: uncomplicated Qualified Code(s): F17.210 - Nicotine dependence, cigarettes, uncomplicated (6) Seizure disorder Current Visit: Yes Status: Chronic (7) Neuropathy Current Visit: Yes Status: Acute (8) Multiple sclerosis Current Visit: Yes Status: Acute - AMA Did Patient Leave Against Medical Advice: No
[2018-02-14] MEDS ORDERED: diazePAM 5 MG TABLET PO SCH (10:00)
[2018-02-14] MEDS: BACITRACIN 0.9 GM PACKET TP SCH (10:34)
[2018-02-14] MEDS: PRENATAL VITAMINS W/ FOLIC ACID TABLET (FP) PO SCH (10:34)
[2018-02-14] MEDS: NICOTINE 21 MG/24 HOURS TOPICAL PATCH TD SCH (10:35)
[2018-02-14] MEDS: IBUPROFEN 400 MG TABLET (FP) PO PRN (13:10)
[2018-02-14 14:10] VITALS: BP 155/90; PULSE 99; TEMP 97.7
--- NOTE | 2018-02-14 15:15 | PN ---
S Progress Note Note: patient would like to go home,is not ready to go to rehab,stable for discharge, follow up with methadone clinic
== END 2018-02-14 13:25 | disposition home or self-care (01) | DRG 773 ==
LOC: YASAS 15:54 → Y6N 20:59
PROVIDERS: ADMIT Internal Medicine; ATTEND Internal Medicine
PROC: HZ2ZZZZ Detoxification Services for Substance Abuse Treatment (ICD-10-PCS; principal; 2018-02-09)
DX: F10.230 Alcohol dependence with withdrawal, uncomplicated (principal); F11.23 Opioid dependence with withdrawal; F13.230 Sedative, hypnotic or anxiolytic dependence with withdrawal, uncomplicated; F14.20 Cocaine dependence, uncomplicated; F12.20 Cannabis dependence, uncomplicated; F17.210 Nicotine dependence, cigarettes, uncomplicated; F19.24 Other psychoactive substance dependence with psychoactive substance-induced mood disorder; F31.9 Bipolar disorder, unspecified; G47.00 Insomnia, unspecified; G62.9 Polyneuropathy, unspecified; G35 Multiple sclerosis; M79.7 Fibromyalgia; E66.9 Obesity, unspecified; Z68.33 Body mass index [BMI] 33.0-33.9, adult; Z91.013 Allergy to seafood; Z88.2 Allergy status to sulfonamides; Z86.69 Personal history of other diseases of the nervous system and sense organs
CPT/HCPCS: 36415; 80053; 81003; 85027; 86593; 93005; 93010; J0735; Q0162

== ENCOUNTER 2018-02-21 15:48 | Inpatient (IN) | payer OTHER ==
[2018-02-21 17:19] VITALS: BMI 33.0
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
[2018-02-21] MEDS ORDERED: MAGNESIUM CITRATE 300 ML BOTTLE PO PRN (21:20)
[2018-02-21] MEDS ORDERED: MAGNESIUM HYDROX 2400MG/30ML ORAL SUSPENSION 30 ML CUP PO PRN (21:20)
[2018-02-21] MEDS ORDERED: guaiFENesin/D-METHORPHAN HB 10 ML UNIT-DOSE CUPS PO PRN (21:20)
[2018-02-21] MEDS ORDERED: LOPERAMIDE HCL 2 MG CAPSULE PO PRN (21:20)
[2018-02-21] MEDS ORDERED: P-EPHED 60MG/TRIPROLIDI 2.5MG TABLET PO PRN (21:20)
[2018-02-21] MEDS ORDERED: IBUPROFEN 400 MG TABLET (FP) PO PRN (21:20)
[2018-02-21] MEDS ORDERED: hydrOXYzine PAMOATE 50 MG CAPSULE (FP) PO PRN (21:20)
[2018-02-21] MEDS ORDERED: MENTHOL/PHENOL 1 EACH UD MM PRN (21:20)
[2018-02-21] MEDS: CYCLOBENZAPRINE HCL 10 MG TABLET (FP) PO SCH (21:51)
[2018-02-21] MEDS: GABAPENTIN 400 MG CAPSULE (FP) PO SCH (21:51)
[2018-02-21] MEDS: THIAMINE HCL 100 MG TABLET (FP) PO SCH (21:52)
[2018-02-21] MEDS: LIDOCAINE 5% TOPICAL PATCH TP SCH (21:56)
[2018-02-21] MEDS: LIDOCAINE PATCH REMOVAL MC SCH (21:57)
[2018-02-21] MEDS ORDERED: MELATONIN 5 MG TABLETS PO PRN (22:00)
[2018-02-21] MEDS: DOCUSATE SODIUM 100 MG CAPSULE (FP) PO SCH (23:06)
[2018-02-21 23:59] LABS: URINE APPEARANCE TURBID; URINE BILIRUBIN NEGATIVE (<2.0 mg/dL); URINE BLOOD NEGATIVE (NEGATIVE); URINE COLOR YELLOW; URINE GLUCOSE (UA) NEGATIVE (NEGATIVE); URINE KETONE NEGATIVE (NEGATIVE); URINE LEUK ESTERASE NEGATIVE (NEGATIVE); URINE NITRITE NEGATIVE (NEGATIVE); URINE PROTEIN NEGATIVE (NEGATIVE); URINE UROBILINOGEN NEGATIVE mg/dL (0.2-1.0)
[2018-02-22] MEDS: CYCLOBENZAPRINE HCL 10 MG TABLET (FP) PO SCH ×3 (06:46→21:43)
[2018-02-22] MEDS: GABAPENTIN 400 MG CAPSULE (FP) PO SCH ×3 (06:46→21:42)
[2018-02-22] MEDS: NICOTINE 21 MG/24 HOURS TOPICAL PATCH TD SCH (10:24)
[2018-02-22] MEDS: PRENATAL VITAMINS W/ FOLIC ACID TABLET (FP) PO SCH (10:24)
[2018-02-22] MEDS: DOCUSATE SODIUM 100 MG CAPSULE (FP) PO SCH ×2 (10:24→21:42)
[2018-02-22] MEDS: METHADONE HCL 40 MG DISPERSABLE TABLET PO SCH (10:24)
[2018-02-22] MEDS: LIDOCAINE 5% TOPICAL PATCH TP SCH (10:24)
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
[2018-02-22] MEDS: hydrOXYzine PAMOATE 50 MG CAPSULE (FP) PO SCH ×2 (13:00→21:42)
[2018-02-22] MEDS ORDERED: IBUPROFEN 400 MG TABLET (FP) PO PRN (13:06)
--- NOTE | 2018-02-22 13:16 | PN ---
[facility] Progress Note Note: Patient requested lyrica for generalize nerve pain, increase in dosage in gabapentin 1200mg TID. Patient reports last time Lyrica was taken was in October 2017 d/t to insurance issues. Patient reports in the past has tried naproxen for general pain relief. Vital Signs Temperature 98.1 F 02/22/18 07:17 Pulse Rate 90 02/22/18 07:17 Respiratory Rate 18 02/22/18 07:17 Blood Pressure 151/94 02/22/18 07:17 O2 Sat by Pulse Oximetry (%) Prescriptions Patient Name: Usman Mohamud Date: 1985 Address: [address] [place], [place] [id number] Sex: Male Rx Written Rx Dispensed Drug Quantity Days Supply Prescriber Name 10/31/2017 10/31/2017 lyrica 200 mg capsule 20 10 Dillon Silveira 10/31/2017 10/31/2017 lyrica 100 mg capsule 20 10 Dillon Silveira Patient Name: Usman Mohamud Date: 1985 Address: [address] [place], [place] [id number] Sex: Male Rx Written Rx Dispensed Drug Quantity Days Supply Prescriber Name 07/29/2017 07/29/2017 clonazepam 2 mg tablet 4 2 Jorge L Dukes MD 07/29/2017 07/29/2017 oxycodone-acetaminophen 5-325 mg tab 10 3 Jorge L Dukes MD Patient Name: Dorian Mohamud Date: 1985 Address: [address] [place] [address] Sex: Male Rx Written Rx Dispensed Drug Quantity Days Supply Prescriber Name 07/27/2017 07/27/2017 oxycodone-acetaminophen 5-325 mg tab 6 3 Gordon Montgomery 04/15/2017 04/25/2017 oxycodone-acetaminophen 5-325 mg tab 2 1 Brie Pandey (PA-C Patient AOx3, in no apparent distress Ambualtin in the unit no kjoint deformity or erythema Skin intact - chronic back pain - neuropathy Plan: d/c Ibuprofen start naproxen 500 mg BID Increase fluids patient was educated on the importance to follow up with his PMD while out patient to mange his chronic conditions. Patient verbalize understanding.
[2018-02-22 13:58] LABS: HEMATOCRIT 42.9 % (35.4-49); HEMOGLOBIN 14.1 GM/dL (11.7-16.9); MCH 27.9 pg (25.7-33.7); MCHC 32.9 g/dl (32.0-35.9); MEAN CELL VOLUME 84.7 fl (80-96); PLATELET COUNT 396 K/MM3 (134-434); RBC 5.07 M/mm3 (4.00-5.60); RDW 15.4 % (11.9-15.9); WHITE BLOOD COUNT 10.9 K/mm3 (4.0-10.0)
[2018-02-22 14:12] LABS: CHLORIDE 102 mmol/L (98-107); POTASSIUM 4.2 mmol/L (3.5-5.1); SODIUM 138 mmol/L (136-145)
[2018-02-22] MEDS: NAPROXEN 500 MG TABLET (FP) PO SCH ×2 (14:15→21:43)
[2018-02-22 14:42] LABS: ALBUMIN 3.6 g/dl (3.4-5.0); ALK PHOS 110 U/L (45-117); ANION GAP 10 (8-16); BILIRUBIN,TOTAL 0.3 mg/dL (0.2-1.0); BLOOD UREA NITROGEN 19 mg/dL (7-18); CALCIUM 8.2 mg/dL (8.5-10.1); CO2 26 mmol/L (21-32); CREATININE 0.8 mg/dL (0.7-1.3); GLUCOSE,RANDOM 80 mg/dL (74-106); SGOT/AST 19 U/L (15-37); SGPT/ALT 35 U/L (12-78); TOT PROT 7.3 g/dl (6.4-8.2)
--- NOTE | 2018-02-22 16:33 | EKG ---
Test Reason : Blood Pressure : / mmHG Vent. Rate : 093 BPM Atrial Rate : 093 BPM P-R Int : 160 ms QRS Dur : 104 ms QT Int : 370 ms P-R-T Axes : 080 082 074 degrees QTc Int : 460 ms NORMAL SINUS RHYTHM RIGHT ATRIAL ENLARGEMENT BORDERLINE ECG WHEN COMPARED WITH ECG OF 10-FEB-2018 02:06, NO SIGNIFICANT CHANGE WAS FOUND Confirmed by NAEL ALVAREZ MD ([id number]) on 02/22/2018 4:33:11 PM Referred By: Confirmed By:NAEL ALVAREZ MD
[2018-02-22] MEDS: THIAMINE HCL 100 MG TABLET (FP) PO SCH (21:43)
[2018-02-22] MEDS: traZODone HCL 50 MG TABLET (FP) PO SCH (21:43)
[2018-02-22] MEDS: LIDOCAINE PATCH REMOVAL MC SCH (21:44)
[2018-02-22] MEDS: BENZOCAINE 20 % GEL 9 GM TUBE MM PRN (22:01)
[2018-02-23] MEDS: METHADONE HCL 40 MG DISPERSABLE TABLET PO SCH (06:26)
[2018-02-23] MEDS: CYCLOBENZAPRINE HCL 10 MG TABLET (FP) PO SCH ×3 (06:26→21:24)
[2018-02-23] MEDS: hydrOXYzine PAMOATE 50 MG CAPSULE (FP) PO SCH ×3 (06:26→21:24)
[2018-02-23] MEDS: GABAPENTIN 400 MG CAPSULE (FP) PO SCH ×3 (06:26→21:24)
[2018-02-23] MEDS: DOCUSATE SODIUM 100 MG CAPSULE (FP) PO SCH ×2 (09:00→21:24)
[2018-02-23] MEDS: NAPROXEN 500 MG TABLET (FP) PO SCH ×2 (09:00→21:24)
[2018-02-23] MEDS: PRENATAL VITAMINS W/ FOLIC ACID TABLET (FP) PO SCH (09:00)
[2018-02-23] MEDS: LIDOCAINE 5% TOPICAL PATCH TP SCH (09:01)
[2018-02-23] MEDS: NICOTINE 21 MG/24 HOURS TOPICAL PATCH TD SCH (09:01)
[2018-02-23] MEDS: ACETAMINOPHEN 325 MG TABLET (FP) PO PRN (10:17)
[2018-02-23] MEDS: BENZOCAINE 20 % GEL 9 GM TUBE MM PRN (10:17)
--- NOTE | 2018-02-23 11:08 | PN ---
S Progress Note Note: patient requested to take wellbutrin at 6 ma, states this is the time when he takes all his pills, will change time.
[2018-02-23] MEDS: MAG HYDROX/AL HYDROX/SIMETH 30 ML UNIT-DOSE CUP PO PRN (20:04)
[2018-02-23] MEDS: traZODone HCL 50 MG TABLET (FP) PO SCH (21:24)
[2018-02-23] MEDS: QUEtiapine FUMARATE 400 MG TABLET PO SCH (21:25)
[2018-02-23] MEDS: THIAMINE HCL 100 MG TABLET (FP) PO SCH (21:25)
[2018-02-23] MEDS: LIDOCAINE PATCH REMOVAL MC SCH (21:26)
[2018-02-23] MEDS ORDERED: QUEtiapine FUMARATE 100 MG TABLET (FP) PO SCH (22:00)
[2018-02-24] MEDS: METHADONE HCL 40 MG DISPERSABLE TABLET PO SCH (06:31)
[2018-02-24] MEDS: CYCLOBENZAPRINE HCL 10 MG TABLET (FP) PO SCH ×3 (06:33→21:26)
[2018-02-24] MEDS: GABAPENTIN 400 MG CAPSULE (FP) PO SCH ×3 (06:33→21:26)
[2018-02-24] MEDS: hydrOXYzine PAMOATE 50 MG CAPSULE (FP) PO SCH ×3 (07:27→21:26)
[2018-02-24] MEDS: ACETAMINOPHEN 325 MG TABLET (FP) PO PRN (09:29)
[2018-02-24] MEDS: PANTOPRAZOLE 40 MG TABLET (FP) PO SCH (09:30)
[2018-02-24] MEDS: NICOTINE 21 MG/24 HOURS TOPICAL PATCH TD SCH (09:30)
[2018-02-24] MEDS: DOCUSATE SODIUM 100 MG CAPSULE (FP) PO SCH ×2 (09:30→21:26)
[2018-02-24] MEDS: LIDOCAINE 5% TOPICAL PATCH TP SCH (09:30)
[2018-02-24] MEDS: NAPROXEN 500 MG TABLET (FP) PO SCH ×2 (09:30→21:26)
[2018-02-24] MEDS: PRENATAL VITAMINS W/ FOLIC ACID TABLET (FP) PO SCH (09:30)
[2018-02-24] MEDS: MAG HYDROX/AL HYDROX/SIMETH 30 ML UNIT-DOSE CUP PO PRN (14:11)
[2018-02-24] MEDS: QUEtiapine FUMARATE 400 MG TABLET PO SCH (21:26)
[2018-02-24] MEDS: traZODone HCL 50 MG TABLET (FP) PO SCH (21:26)
[2018-02-24] MEDS: THIAMINE HCL 100 MG TABLET (FP) PO SCH (21:27)
[2018-02-24] MEDS: LIDOCAINE PATCH REMOVAL MC SCH (21:28)
[2018-02-24] MEDS: ALBUTEROL SO4 18 GM HFA INHALER IH PRN (22:09)
[2018-02-25] MEDS: ALBUTEROL SO4 18 GM HFA INHALER IH PRN ×4 (06:22→21:27)
[2018-02-25] MEDS: METHADONE HCL 40 MG DISPERSABLE TABLET PO SCH (06:23)
[2018-02-25] MEDS: CYCLOBENZAPRINE HCL 10 MG TABLET (FP) PO SCH ×3 (06:25→21:25)
[2018-02-25] MEDS: hydrOXYzine PAMOATE 50 MG CAPSULE (FP) PO SCH ×3 (06:26→21:25)
[2018-02-25] MEDS: GABAPENTIN 400 MG CAPSULE (FP) PO SCH ×3 (06:26→21:25)
[2018-02-25] MEDS: PANTOPRAZOLE 40 MG TABLET (FP) PO SCH (10:18)
[2018-02-25] MEDS: NAPROXEN 500 MG TABLET (FP) PO SCH ×2 (10:18→21:25)
[2018-02-25] MEDS: LIDOCAINE 5% TOPICAL PATCH TP SCH (10:19)
[2018-02-25] MEDS: DOCUSATE SODIUM 100 MG CAPSULE (FP) PO SCH ×2 (10:19→21:25)
[2018-02-25] MEDS: NICOTINE 21 MG/24 HOURS TOPICAL PATCH TD SCH (10:19)
[2018-02-25] MEDS: PRENATAL VITAMINS W/ FOLIC ACID TABLET (FP) PO SCH (10:19)
[2018-02-25] MEDS: BENZOCAINE 20 % GEL 9 GM TUBE MM PRN (14:12)
[2018-02-25] MEDS: MAG HYDROX/AL HYDROX/SIMETH 30 ML UNIT-DOSE CUP PO PRN (14:13)
[2018-02-25] MEDS: QUEtiapine FUMARATE 400 MG TABLET PO SCH (21:24)
[2018-02-25] MEDS: traZODone HCL 50 MG TABLET (FP) PO SCH (21:25)
[2018-02-25] MEDS: THIAMINE HCL 100 MG TABLET (FP) PO SCH (21:25)
[2018-02-25] MEDS: LIDOCAINE PATCH REMOVAL MC SCH (21:27)
[2018-02-26] MEDS: ALBUTEROL SO4 18 GM HFA INHALER IH PRN ×2 (06:24→21:36)
[2018-02-26] MEDS: GABAPENTIN 400 MG CAPSULE (FP) PO SCH ×3 (06:25→21:34)
[2018-02-26] MEDS: METHADONE HCL 40 MG DISPERSABLE TABLET PO SCH (06:25)
[2018-02-26] MEDS: hydrOXYzine PAMOATE 50 MG CAPSULE (FP) PO SCH ×3 (06:26→21:34)
[2018-02-26] MEDS: CYCLOBENZAPRINE HCL 10 MG TABLET (FP) PO SCH ×3 (06:26→21:35)
[2018-02-26] MEDS: ACETAMINOPHEN 325 MG TABLET (FP) PO PRN ×2 (07:25→14:18)
[2018-02-26] MEDS: NAPROXEN 500 MG TABLET (FP) PO SCH ×2 (09:31→21:34)
[2018-02-26] MEDS: NICOTINE 21 MG/24 HOURS TOPICAL PATCH TD SCH (09:31)
[2018-02-26] MEDS: PANTOPRAZOLE 40 MG TABLET (FP) PO SCH (09:31)
[2018-02-26] MEDS: PRENATAL VITAMINS W/ FOLIC ACID TABLET (FP) PO SCH (09:31)
[2018-02-26] MEDS: LIDOCAINE 5% TOPICAL PATCH TP SCH (09:31)
[2018-02-26] MEDS: DOCUSATE SODIUM 100 MG CAPSULE (FP) PO SCH ×2 (09:31→21:35)
[2018-02-26] MEDS: MAG HYDROX/AL HYDROX/SIMETH 30 ML UNIT-DOSE CUP PO PRN (14:19)
[2018-02-26] MEDS: QUEtiapine FUMARATE 400 MG TABLET PO SCH (21:34)
[2018-02-26] MEDS: traZODone HCL 50 MG TABLET (FP) PO SCH (21:34)
[2018-02-26] MEDS: THIAMINE HCL 100 MG TABLET (FP) PO SCH (21:35)
[2018-02-26] MEDS: LIDOCAINE PATCH REMOVAL MC SCH (21:36)
[2018-02-26] MEDS: BENZOCAINE 20 % GEL 9 GM TUBE MM PRN (23:22)
[2018-02-27] MEDS: CYCLOBENZAPRINE HCL 10 MG TABLET (FP) PO SCH ×3 (05:58→21:38)
[2018-02-27] MEDS: GABAPENTIN 400 MG CAPSULE (FP) PO SCH ×3 (05:58→21:38)
[2018-02-27] MEDS: hydrOXYzine PAMOATE 50 MG CAPSULE (FP) PO SCH ×3 (05:58→21:38)
[2018-02-27] MEDS: METHADONE HCL 40 MG DISPERSABLE TABLET PO SCH (05:59)
[2018-02-27] MEDS: NAPROXEN 500 MG TABLET (FP) PO SCH ×2 (10:19→21:38)
[2018-02-27] MEDS: LIDOCAINE 5% TOPICAL PATCH TP SCH (10:19)
[2018-02-27] MEDS: PRENATAL VITAMINS W/ FOLIC ACID TABLET (FP) PO SCH (10:19)
[2018-02-27] MEDS: PANTOPRAZOLE 40 MG TABLET (FP) PO SCH (10:19)
[2018-02-27] MEDS: DOCUSATE SODIUM 100 MG CAPSULE (FP) PO SCH ×2 (10:19→21:38)
[2018-02-27] MEDS: NICOTINE 21 MG/24 HOURS TOPICAL PATCH TD SCH (10:20)
[2018-02-27] MEDS: ALBUTEROL SO4 18 GM HFA INHALER IH PRN ×2 (12:07→21:40)
[2018-02-27] MEDS: MAG HYDROX/AL HYDROX/SIMETH 30 ML UNIT-DOSE CUP PO PRN (12:08)
[2018-02-27] MEDS: ACETAMINOPHEN 325 MG TABLET (FP) PO PRN (12:09)
[2018-02-27] MEDS: traZODone HCL 50 MG TABLET (FP) PO SCH (21:38)
[2018-02-27] MEDS: THIAMINE HCL 100 MG TABLET (FP) PO SCH (21:38)
[2018-02-27] MEDS: QUEtiapine FUMARATE 400 MG TABLET PO SCH (21:38)
[2018-02-27] MEDS: LIDOCAINE PATCH REMOVAL MC SCH (21:40)
[2018-02-28] MEDS: ALBUTEROL SO4 18 GM HFA INHALER IH PRN ×2 (05:15→10:32)
[2018-02-28] MEDS: METHADONE HCL 40 MG DISPERSABLE TABLET PO SCH (06:21)
[2018-02-28] MEDS: hydrOXYzine PAMOATE 50 MG CAPSULE (FP) PO SCH ×3 (06:22→21:33)
[2018-02-28] MEDS: CYCLOBENZAPRINE HCL 10 MG TABLET (FP) PO SCH ×3 (06:23→21:33)
[2018-02-28] MEDS: GABAPENTIN 400 MG CAPSULE (FP) PO SCH ×3 (06:23→21:32)
[2018-02-28] MEDS: NAPROXEN 500 MG TABLET (FP) PO SCH ×2 (10:29→21:33)
[2018-02-28] MEDS: PRENATAL VITAMINS W/ FOLIC ACID TABLET (FP) PO SCH (10:29)
[2018-02-28] MEDS: PANTOPRAZOLE 40 MG TABLET (FP) PO SCH (10:29)
[2018-02-28] MEDS: LIDOCAINE 5% TOPICAL PATCH TP SCH (10:30)
[2018-02-28] MEDS: NICOTINE 21 MG/24 HOURS TOPICAL PATCH TD SCH (10:30)
[2018-02-28] MEDS: DOCUSATE SODIUM 100 MG CAPSULE (FP) PO SCH ×2 (10:30→21:33)
[2018-02-28] MEDS: MAG HYDROX/AL HYDROX/SIMETH 30 ML UNIT-DOSE CUP PO PRN (14:48)
[2018-02-28] MEDS: THIAMINE HCL 100 MG TABLET (FP) PO SCH (21:33)
[2018-02-28] MEDS: traZODone HCL 50 MG TABLET (FP) PO SCH (21:33)
[2018-02-28] MEDS: QUEtiapine FUMARATE 400 MG TABLET PO SCH (21:33)
[2018-02-28] MEDS: LIDOCAINE PATCH REMOVAL MC SCH (21:34)
[2018-03-01] MEDS: METHADONE HCL 40 MG DISPERSABLE TABLET PO SCH (06:00)
[2018-03-01] MEDS: GABAPENTIN 400 MG CAPSULE (FP) PO SCH ×3 (06:01→21:29)
[2018-03-01] MEDS: CYCLOBENZAPRINE HCL 10 MG TABLET (FP) PO SCH ×3 (06:01→21:29)
[2018-03-01] MEDS: hydrOXYzine PAMOATE 50 MG CAPSULE (FP) PO SCH ×3 (06:01→21:29)
[2018-03-01] MEDS: ALBUTEROL SO4 18 GM HFA INHALER IH PRN ×2 (06:07→21:29)
[2018-03-01] MEDS: NAPROXEN 500 MG TABLET (FP) PO SCH ×2 (10:16→21:29)
[2018-03-01] MEDS: PRENATAL VITAMINS W/ FOLIC ACID TABLET (FP) PO SCH (10:16)
[2018-03-01] MEDS: DOCUSATE SODIUM 100 MG CAPSULE (FP) PO SCH ×2 (10:16→21:29)
[2018-03-01] MEDS: PANTOPRAZOLE 40 MG TABLET (FP) PO SCH (10:16)
[2018-03-01] MEDS: LIDOCAINE 5% TOPICAL PATCH TP SCH (10:17)
[2018-03-01] MEDS: NICOTINE 21 MG/24 HOURS TOPICAL PATCH TD SCH (10:17)
[2018-03-01] MEDS: BENZOCAINE 20 % GEL 9 GM TUBE MM PRN (10:35)
--- NOTE | 2018-03-01 13:15 | PN ---
S Progress Note Note: Patient c/o of dental pain on the right lower molar. Vital Signs Temperature 98.0 F 02/26/18 06:35 Pulse Rate 74 03/01/18 06:42 Respiratory Rate 18 03/01/18 06:42 Blood Pressure 115/79 03/01/18 06:42 O2 Sat by Pulse Oximetry (%) Laboratory Last Values WBC 10.9 K/mm3 (4.0-10.0) H D 02/22/18 08:45 RBC 5.07 M/mm3 (4.00-5.60) 02/22/18 08:45 Hgb 14.1 GM/dL (11.7-16.9) 02/22/18 08:45 Hct 42.9 % (35.4-49) 02/22/18 08:45 MCV 84.7 fl (80-96) 02/22/18 08:45 MCH 27.9 pg (25.7-33.7) 02/22/18 08:45 MCHC 32.9 g/dl (32.0-35.9) 02/22/18 08:45 RDW 15.4 % (11.9-15.9) 02/22/18 08:45 Plt Count 396 K/MM3 (134-434) D 02/22/18 08:45 MPV 8.0 fl (7.5-11.1) 02/22/18 08:45 Sodium 138 mmol/L (136-145) 02/22/18 08:45 Potassium 4.2 mmol/L (3.5-5.1) 02/22/18 08:45 Chloride 102 mmol/L (98-107) 02/22/18 08:45 Carbon Dioxide 26 mmol/L (21-32) 02/22/18 08:45 Anion Gap 10 (8-16) 02/22/18 08:45 BUN 19 mg/dL (7-18) H D 02/22/18 08:45 Creatinine 0.8 mg/dL (0.7-1.3) 02/22/18 08:45 Creat Clearance w eGFR > 60 (>60) 02/22/18 08:45 Random Glucose 80 mg/dL (74-106) 02/22/18 08:45 Calcium 8.2 mg/dL (8.5-10.1) L 02/22/18 08:45 Total Bilirubin 0.3 mg/dL (0.2-1.0) D 02/22/18 08:45 AST 19 U/L (15-37) D 02/22/18 08:45 ALT 35 U/L (12-78) D 02/22/18 08:45 Alkaline Phosphatase 110 U/L (45-117) D 02/22/18 08:45 Total Protein 7.3 g/dl (6.4-8.2) D 02/22/18 08:45 Albumin 3.6 g/dl (3.4-5.0) 02/22/18 08:45 Urine Color Yellow 02/21/18 Unknown Urine Appearance Turbid 02/21/18 Unknown Urine pH 5.0 (5.0-8.0) D 02/21/18 Unknown Ur Specific [place] 1.032 (1.001-1.035) 02/21/18 Unknown Urine Protein Negative (NEGATIVE) 02/21/18 Unknown Urine Glucose (UA) Negative (NEGATIVE) 02/21/18 Unknown Urine Ketones Negative (NEGATIVE) 02/21/18 Unknown Urine Blood Negative (NEGATIVE) 02/21/18 Unknown Urine Nitrite Negative (NEGATIVE) 02/21/18 Unknown Urine Bilirubin Negative (<2.0 mg/dL) 02/21/18 Unknown Urine Urobilinogen Negative mg/dL (0.2-1.0) 02/21/18 Unknown Ur Leukocyte Esterase Negative (NEGATIVE) 02/21/18 Unknown RPR Titer Nonreactive (NONREACTIVE) 02/22/18 08:45 A/P Patient is AOx3 self directing + poor dentition, + pain lower molars, multiple caries, gym erythema, broken right lower molar no adventitious breath sounds full ROM ambulating in the unit - Dental infection Plan: continue anbesol PRN start on clindamycin 300 PO TID continue to monitor
--- NOTE | 2018-03-01 13:16 | PN ---
[facility] Progress Note Note: patient requested to adjust Seroquel from 400 mg po hs to 200 mg po hs due to sedation in am, will change dosage, continue the same management.
[2018-03-01] MEDS: MAG HYDROX/AL HYDROX/SIMETH 30 ML UNIT-DOSE CUP PO PRN (13:53)
[2018-03-01] MEDS: CLINDAMYCIN HCL 150 MG CAPSULE (FP) PO SCH ×2 (15:50→21:29)
[2018-03-01] MEDS: traZODone HCL 50 MG TABLET (FP) PO SCH (21:29)
[2018-03-01] MEDS: QUEtiapine FUMARATE 200 MG TABLET PO SCH (21:29)
[2018-03-01] MEDS: THIAMINE HCL 100 MG TABLET (FP) PO SCH (21:29)
[2018-03-01] MEDS: LIDOCAINE PATCH REMOVAL MC SCH (21:31)
[2018-03-02] MEDS: ALBUTEROL SO4 18 GM HFA INHALER IH PRN ×3 (06:32→21:22)
[2018-03-02] MEDS: hydrOXYzine PAMOATE 50 MG CAPSULE (FP) PO SCH ×3 (06:35→21:21)
[2018-03-02] MEDS: CYCLOBENZAPRINE HCL 10 MG TABLET (FP) PO SCH ×3 (06:35→21:21)
[2018-03-02] MEDS: CLINDAMYCIN HCL 150 MG CAPSULE (FP) PO SCH ×3 (06:35→21:21)
[2018-03-02] MEDS: METHADONE HCL 40 MG DISPERSABLE TABLET PO SCH (06:35)
[2018-03-02] MEDS: GABAPENTIN 400 MG CAPSULE (FP) PO SCH ×3 (06:36→21:22)
[2018-03-02] MEDS: PRENATAL VITAMINS W/ FOLIC ACID TABLET (FP) PO SCH (10:23)
[2018-03-02] MEDS: DOCUSATE SODIUM 100 MG CAPSULE (FP) PO SCH ×2 (10:23→21:21)
[2018-03-02] MEDS: PANTOPRAZOLE 40 MG TABLET (FP) PO SCH (10:23)
[2018-03-02] MEDS: ESCITALOPRAM OXALATE 10 MG TABLET (FP) PO SCH (10:23)
[2018-03-02] MEDS: NAPROXEN 500 MG TABLET (FP) PO SCH ×2 (10:23→21:21)
[2018-03-02] MEDS: NICOTINE 21 MG/24 HOURS TOPICAL PATCH TD SCH (10:24)
[2018-03-02] MEDS: LIDOCAINE 5% TOPICAL PATCH TP SCH (10:25)
[2018-03-02] MEDS: NICOTINE POLACRILEX 2 MG GUM BUC PRN (14:01)
[2018-03-02] MEDS: QUEtiapine FUMARATE 200 MG TABLET PO SCH (21:21)
[2018-03-02] MEDS: traZODone HCL 50 MG TABLET (FP) PO SCH (21:22)
[2018-03-02] MEDS: THIAMINE HCL 100 MG TABLET (FP) PO SCH (21:22)
[2018-03-02] MEDS: LIDOCAINE PATCH REMOVAL MC SCH (21:23)
[2018-03-03] MEDS: hydrOXYzine PAMOATE 50 MG CAPSULE (FP) PO SCH ×3 (06:12→21:33)
[2018-03-03] MEDS: METHADONE HCL 40 MG DISPERSABLE TABLET PO SCH (06:12)
[2018-03-03] MEDS: GABAPENTIN 400 MG CAPSULE (FP) PO SCH ×3 (06:12→21:32)
[2018-03-03] MEDS: CLINDAMYCIN HCL 150 MG CAPSULE (FP) PO SCH ×3 (06:12→21:33)
[2018-03-03] MEDS: CYCLOBENZAPRINE HCL 10 MG TABLET (FP) PO SCH ×3 (06:12→21:33)
[2018-03-03] MEDS: NICOTINE POLACRILEX 2 MG GUM BUC PRN ×3 (06:16→21:34)
[2018-03-03] MEDS: ALBUTEROL SO4 18 GM HFA INHALER IH PRN ×3 (06:57→21:34)
[2018-03-03] MEDS: PANTOPRAZOLE 40 MG TABLET (FP) PO SCH (10:11)
[2018-03-03] MEDS: PRENATAL VITAMINS W/ FOLIC ACID TABLET (FP) PO SCH (10:11)
[2018-03-03] MEDS: NAPROXEN 500 MG TABLET (FP) PO SCH ×2 (10:11→21:33)
[2018-03-03] MEDS: DOCUSATE SODIUM 100 MG CAPSULE (FP) PO SCH ×2 (10:11→21:33)
[2018-03-03] MEDS: NICOTINE 21 MG/24 HOURS TOPICAL PATCH TD SCH (10:11)
[2018-03-03] MEDS: ESCITALOPRAM OXALATE 10 MG TABLET (FP) PO SCH (10:11)
[2018-03-03] MEDS: LIDOCAINE 5% TOPICAL PATCH TP SCH (10:11)
[2018-03-03] MEDS: BENZOCAINE 20 % GEL 9 GM TUBE MM PRN (10:19)
[2018-03-03] MEDS: traZODone HCL 50 MG TABLET (FP) PO SCH (21:33)
[2018-03-03] MEDS: QUEtiapine FUMARATE 200 MG TABLET PO SCH (21:33)
[2018-03-03] MEDS: THIAMINE HCL 100 MG TABLET (FP) PO SCH (21:34)
[2018-03-03] MEDS: LIDOCAINE PATCH REMOVAL MC SCH (21:34)
[2018-03-03] MEDS: MAG HYDROX/AL HYDROX/SIMETH 30 ML UNIT-DOSE CUP PO PRN (22:02)
[2018-03-04] MEDS: CYCLOBENZAPRINE HCL 10 MG TABLET (FP) PO SCH ×3 (06:38→21:28)
[2018-03-04] MEDS: METHADONE HCL 40 MG DISPERSABLE TABLET PO SCH (06:38)
[2018-03-04] MEDS: CLINDAMYCIN HCL 150 MG CAPSULE (FP) PO SCH ×3 (06:38→21:28)
[2018-03-04] MEDS: hydrOXYzine PAMOATE 50 MG CAPSULE (FP) PO SCH ×3 (06:39→21:28)
[2018-03-04] MEDS: GABAPENTIN 400 MG CAPSULE (FP) PO SCH ×3 (06:39→21:28)
[2018-03-04] MEDS: ALBUTEROL SO4 18 GM HFA INHALER IH PRN ×2 (06:40→21:27)
[2018-03-04] MEDS: NICOTINE POLACRILEX 2 MG GUM BUC PRN ×3 (06:41→21:29)
[2018-03-04] MEDS: ESCITALOPRAM OXALATE 10 MG TABLET (FP) PO SCH (09:56)
[2018-03-04] MEDS: NAPROXEN 500 MG TABLET (FP) PO SCH ×2 (09:56→21:28)
[2018-03-04] MEDS: PRENATAL VITAMINS W/ FOLIC ACID TABLET (FP) PO SCH (09:56)
[2018-03-04] MEDS: PANTOPRAZOLE 40 MG TABLET (FP) PO SCH (09:56)
[2018-03-04] MEDS: DOCUSATE SODIUM 100 MG CAPSULE (FP) PO SCH ×2 (09:56→21:28)
[2018-03-04] MEDS: LIDOCAINE 5% TOPICAL PATCH TP SCH (09:57)
[2018-03-04] MEDS: NICOTINE 21 MG/24 HOURS TOPICAL PATCH TD SCH (09:57)
[2018-03-04] MEDS: MAG HYDROX/AL HYDROX/SIMETH 30 ML UNIT-DOSE CUP PO PRN (10:01)
[2018-03-04] MEDS: QUEtiapine FUMARATE 200 MG TABLET PO SCH (21:28)
[2018-03-04] MEDS: THIAMINE HCL 100 MG TABLET (FP) PO SCH (21:28)
[2018-03-04] MEDS: LIDOCAINE PATCH REMOVAL MC SCH (21:28)
[2018-03-04] MEDS: traZODone HCL 50 MG TABLET (FP) PO SCH (21:28)
[2018-03-05] MEDS: ALBUTEROL SO4 18 GM HFA INHALER IH PRN ×3 (06:41→21:29)
[2018-03-05] MEDS: METHADONE HCL 40 MG DISPERSABLE TABLET PO SCH (06:43)
[2018-03-05] MEDS: GABAPENTIN 400 MG CAPSULE (FP) PO SCH ×3 (06:44→21:27)
[2018-03-05] MEDS: CYCLOBENZAPRINE HCL 10 MG TABLET (FP) PO SCH ×3 (06:44→21:27)
[2018-03-05] MEDS: hydrOXYzine PAMOATE 50 MG CAPSULE (FP) PO SCH ×3 (06:44→21:27)
[2018-03-05] MEDS: CLINDAMYCIN HCL 150 MG CAPSULE (FP) PO SCH ×3 (06:44→21:26)
[2018-03-05] MEDS: NAPROXEN 500 MG TABLET (FP) PO SCH ×2 (10:29→21:27)
[2018-03-05] MEDS: PANTOPRAZOLE 40 MG TABLET (FP) PO SCH (10:29)
[2018-03-05] MEDS: DOCUSATE SODIUM 100 MG CAPSULE (FP) PO SCH ×2 (10:29→21:27)
[2018-03-05] MEDS: ESCITALOPRAM OXALATE 10 MG TABLET (FP) PO SCH (10:30)
[2018-03-05] MEDS: NICOTINE 21 MG/24 HOURS TOPICAL PATCH TD SCH (10:30)
[2018-03-05] MEDS: LIDOCAINE 5% TOPICAL PATCH TP SCH (10:30)
[2018-03-05] MEDS: PRENATAL VITAMINS W/ FOLIC ACID TABLET (FP) PO SCH (10:30)
[2018-03-05] MEDS: NICOTINE POLACRILEX 2 MG GUM BUC PRN ×3 (10:32→21:29)
[2018-03-05] MEDS: QUEtiapine FUMARATE 200 MG TABLET PO SCH (21:27)
[2018-03-05] MEDS: traZODone HCL 50 MG TABLET (FP) PO SCH (21:27)
[2018-03-05] MEDS: THIAMINE HCL 100 MG TABLET (FP) PO SCH (21:27)
[2018-03-05] MEDS: LIDOCAINE PATCH REMOVAL MC SCH (21:30)
[2018-03-06] MEDS: GABAPENTIN 400 MG CAPSULE (FP) PO SCH ×3 (06:47→21:43)
[2018-03-06] MEDS: METHADONE HCL 40 MG DISPERSABLE TABLET PO SCH (06:47)
[2018-03-06] MEDS: hydrOXYzine PAMOATE 50 MG CAPSULE (FP) PO SCH ×3 (06:48→21:43)
[2018-03-06] MEDS: CLINDAMYCIN HCL 150 MG CAPSULE (FP) PO SCH ×3 (06:48→21:43)
[2018-03-06] MEDS: CYCLOBENZAPRINE HCL 10 MG TABLET (FP) PO SCH ×3 (06:49→21:44)
[2018-03-06] MEDS: ALBUTEROL SO4 18 GM HFA INHALER IH PRN ×3 (07:30→21:46)
[2018-03-06] MEDS: NICOTINE POLACRILEX 2 MG GUM BUC PRN ×4 (07:31→17:40)
[2018-03-06] MEDS: PANTOPRAZOLE 40 MG TABLET (FP) PO SCH (10:21)
[2018-03-06] MEDS: DOCUSATE SODIUM 100 MG CAPSULE (FP) PO SCH ×2 (10:21→21:44)
[2018-03-06] MEDS: NAPROXEN 500 MG TABLET (FP) PO SCH ×2 (10:21→21:44)
[2018-03-06] MEDS: NICOTINE 21 MG/24 HOURS TOPICAL PATCH TD SCH (10:21)
[2018-03-06] MEDS: LIDOCAINE 5% TOPICAL PATCH TP SCH (10:22)
[2018-03-06] MEDS: ESCITALOPRAM OXALATE 10 MG TABLET (FP) PO SCH (10:22)
[2018-03-06] MEDS: PRENATAL VITAMINS W/ FOLIC ACID TABLET (FP) PO SCH (10:22)
[2018-03-06] MEDS: MAG HYDROX/AL HYDROX/SIMETH 30 ML UNIT-DOSE CUP PO PRN ×2 (11:54→21:42)
--- NOTE | 2018-03-06 13:27 | PN ---
S Progress Note Note: Patient ready for d/c in the AM. Home medications sent to pharmacy. Patient advise to follow up with primary care provider upon discharge.
[2018-03-06] MEDS: ACETAMINOPHEN 325 MG TABLET (FP) PO PRN (17:39)
[2018-03-06] MEDS: THIAMINE HCL 100 MG TABLET (FP) PO SCH (21:43)
[2018-03-06] MEDS: traZODone HCL 50 MG TABLET (FP) PO SCH (21:43)
[2018-03-06] MEDS: LIDOCAINE PATCH REMOVAL MC SCH (22:08)
[2018-03-06] MEDS: QUEtiapine FUMARATE 200 MG TABLET PO SCH (22:11)
[2018-03-07] MEDS: NICOTINE POLACRILEX 2 MG GUM BUC PRN ×2 (05:58→09:29)
[2018-03-07] MEDS: CLINDAMYCIN HCL 150 MG CAPSULE (FP) PO SCH (05:59)
[2018-03-07] MEDS: hydrOXYzine PAMOATE 50 MG CAPSULE (FP) PO SCH (05:59)
[2018-03-07] MEDS: GABAPENTIN 400 MG CAPSULE (FP) PO SCH (05:59)
[2018-03-07] MEDS: METHADONE HCL 40 MG DISPERSABLE TABLET PO SCH (05:59)
[2018-03-07] MEDS: CYCLOBENZAPRINE HCL 10 MG TABLET (FP) PO SCH (06:00)
[2018-03-07] MEDS: ALBUTEROL SO4 18 GM HFA INHALER IH PRN (06:00)
[2018-03-07 06:44] VITALS: BP 150/95; PULSE 67; TEMP 97.8
[2018-03-07] MEDS: DOCUSATE SODIUM 100 MG CAPSULE (FP) PO SCH (09:25)
[2018-03-07] MEDS: ESCITALOPRAM OXALATE 10 MG TABLET (FP) PO SCH (09:26)
[2018-03-07] MEDS: LIDOCAINE 5% TOPICAL PATCH TP SCH (09:26)
[2018-03-07] MEDS: PRENATAL VITAMINS W/ FOLIC ACID TABLET (FP) PO SCH (09:26)
[2018-03-07] MEDS: PANTOPRAZOLE 40 MG TABLET (FP) PO SCH (09:26)
[2018-03-07] MEDS: NAPROXEN 500 MG TABLET (FP) PO SCH (09:26)
[2018-03-07] MEDS: NICOTINE 21 MG/24 HOURS TOPICAL PATCH TD SCH (09:28)
--- NOTE | 2018-03-07 10:16 | PN ---
Psychiatric Progress Note Vital Signs: Vital Signs Period Temp Pulse Resp BP Sys/Guevara Pulse Ox Last 24 Hr 97.8 F 67 18-19 150/95 Date of Session: 03/07/18 Chief Complaint:: "Discharge." HPI: Patient admitted for benzodiazepine dependence. ROS: Multiple sclerosis and Three herniated disc Current Medications: Active Medications Generic Name Dose Route Start Last Admin Trade Name Freq PRN Reason Stop Dose Admin Acetaminophen 650 mg 02/21/18 21:26 03/06/18 17:39 Tylenol - PO 650 mg Q4H PRN Administration FEVER Al Hydroxide/Mg Hydroxide 30 ml 02/21/18 21:20 03/06/18 21:42 Mylanta Oral Suspension - PO 30 ml Q6H PRN Administration DYSPEPSIA Albuterol Sulfate 2 puff 02/24/18 22:03 03/07/18 06:00 Ventolin Hfa Inhaler - IH 2 puff Q4H PRN Administration SHORT OF BREATH/WHEEZING Benzocaine 1 applic 02/21/18 21:30 03/03/18 10:19 Anbesol - MM 1 applic Q2H PRN Administration tooth pain Bupropion HCl 450 mg 02/24/18 06:00 03/07/18 05:59 Wellbutrin Xl - PO 450 mg DAILY@0600 ZAY Administration Clindamycin HCl 300 mg 03/01/18 14:00 03/07/18 05:59 Cleocin - PO 300 mg TID ZAY Administration Cyclobenzaprine HCl 10 mg 02/21/18 22:00 03/07/18 06:00 Flexeril - PO 10 mg TID ZAY Administration Docusate Sodium 100 mg 02/21/18 22:00 03/07/18 09:25 Colace - PO 100 mg BID ZAY Administration Escitalopram Oxalate 10 mg 03/02/18 10:00 03/07/18 09:26 Lexapro - PO 10 mg DAILY ZAY Administration Eucalyptus/Menthol/Phenol/Sorbitol 1 each 02/21/18 21:20 Cepastat Lozenge - MM Q4H PRN SORE THROAT Gabapentin 1,200 mg 02/21/18 22:00 03/07/18 05:59 Neurontin - PO 1,200 mg TID ZAY Administration Guaifenesin 10 ml 02/21/18 21:20 Robitussin Dm - PO Q6H PRN COUGH Hydroxyzine Pamoate 100 mg 02/22/18 14:00 03/07/18 05:59 Vistaril - PO 100 mg TID ZAY Administration Lidocaine 1 patch 02/21/18 21:15 03/07/18 09:26 Lidoderm Patch - TP 1 patch DAILY ZAY Administration Loperamide HCl 4 mg 02/21/18 21:20 Imodium - PO Q6H PRN DIARRHEA Magnesium Citrate 300 ml 02/21/18 21:20 Citroma - PO Q48H PRN CONSTIPATION Magnesium Hydroxide 30 ml 02/21/18 21:20 Milk Of Magnesia - PO DAILY PRN CONSTIPATION Melatonin 5 mg 02/21/18 22:00 Melatonin PO HS PRN INSOMNIA Methadone HCl 80 mg 03/02/18 06:00 03/07/18 05:59 Dolophine - PO 03/09/18 05:59 80 mg DAILY@0600 ZAY Administration Miscellaneous 1 each 02/21/18 22:00 03/06/18 22:08 Lidoderm Patch Removal MC Not Given DAILY@2200 ZAY Naproxen 500 mg 02/22/18 13:30 03/07/18 09:26 Naprosyn - PO 500 mg BID ZAY Administration Nicotine 21 mg 02/22/18 10:00 03/07/18 09:28 Nicoderm Patch - TD 21 mg DAILY ZAY Administration Nicotine Polacrilex 2 mg 02/21/18 21:20 03/07/18 09:29 Nicorette Gum - BUC 2 mg Q2H PRN Administration NICOTINE REPLACEMENT RX Pantoprazole Sodium 40 mg 02/24/18 10:00 03/07/18 09:26 Protonix - PO 40 mg DAILY ZAY Administration Multivit/Folic Acid/Iron 1 tab 02/22/18 10:00 03/07/18 09:26 Vitamins (Sjr) - PO 1 tab DAILY ZAY Administration Pseudoephedrine/Triprolidine 1 combo 02/21/18 21:20 Actifed - PO TID PRN NASAL CONGESTION Quetiapine Fumarate 200 mg 03/01/18 22:00 03/06/18 22:11 Seroquel - PO 200 mg HS ZAY Administration Thiamine HCl 100 mg 02/21/18 22:00 03/06/18 21:43 Vitamin B1 - PO 100 mg HS ZAY Administration Trazodone HCl 150 mg 02/22/18 22:00 03/06/18 21:43 Desyrel - PO 150 mg HS ZAY Administration Medication(s) Change(s): No. Current Side Effect: No Lab tests ordered: No Lab tests reviewed: Yes Provider note:: Soc Analyst able to complete 15 days on the rehabilitation unit on [facility]. He has met his goals and is looking forward to seeking an outpatient program with the assistance of his drug counselor. Patient found his current medication of Seroquel 400mg, Trazodone 150mg, Wellbutrin 450mg XL, lexapro 10mg , and vistaril 100mg TID effective. A 30 day script of Wellbutrin 200mg SR BID ( patient's home medication) and lexapro 10mg was electronically sent to patient' s pharmacy. In addition a two week supply of vistaril 100mg TID was also electronically sent to patient's pharmacy at [facility] at [address] [place] [id number], [facility]. Patient is stable for discharge. Total face to face time:: 35 Mental Status Exam - Mental Status Exam Alert and Oriented to: Time, Place, Person Cognitive Function: Good Patient Appearance: Well Groomed Mood: Anxious, Hopeful Affect: Appropriate Patient Behavior: Appropriate, Cooperative Speech Pattern: Appropriate Thought Process: Intact, Goal Oriented Thought Disorder: Not Present Hallucinations: Denies Suicidal Ideation: Denies Homicidal Ideation: Denies Insight/Judgement: Good Sleep: Well Appetite: Good Muscle strength/Tone: Normal Gait/Station: Normal Psychiatric Treatment Plan - Problem List (1) Alcohol dependence Current Visit: Yes Qualifiers: Substance use status: uncomplicated Qualified Code(s): F10.20 - Alcohol dependence, uncomplicated (2) Cocaine dependence Current Visit: Yes Qualifiers: Substance use status: uncomplicated Qualified Code(s): F14.20 - Cocaine dependence, uncomplicated (3) Opioid dependence on agonist therapy Current Visit: Yes (4) Sedative hypnotic or anxiolytic dependence Current Visit: Yes (5) Bipolar disorder Current Visit: Yes (6) Cannabis dependence Current Visit: Yes
== END 2018-03-07 11:30 | disposition home or self-care (01) | DRG 772 ==
LOC: YASAS 15:48 → Y5N 19:15
PROVIDERS: ADMIT Psychiatry & Neurology Psychiatry; ATTEND Psychiatry & Neurology Psychiatry
PROC: HZ42ZZZ Group Counseling for Substance Abuse Treatment, Cognitive-Behavioral (ICD-10-PCS; principal; 2018-02-21)
DX: F11.20 Opioid dependence, uncomplicated (principal); F13.20 Sedative, hypnotic or anxiolytic dependence, uncomplicated; F14.20 Cocaine dependence, uncomplicated; F12.20 Cannabis dependence, uncomplicated; F31.9 Bipolar disorder, unspecified; F32.9 Major depressive disorder, single episode, unspecified; M54.41 Lumbago with sciatica, right side; G89.29 Other chronic pain; K02.9 Dental caries, unspecified; G35 Multiple sclerosis; Z91.5 Personal history of self-harm; Z88.8 Allergy status to other drugs, medicaments and biological substances; Z91.018 Allergy to other foods
CPT/HCPCS: 36415; 80053; 81003; 85027; 86593; 93005; 93010